=== PATIENT | male | born 1990 | race Caucasian/White ===

== ENCOUNTER 2018-09-09 20:01 | Emergency (ER) | payer MEDICARE, OTHER ==
[~2018-09-09] VITALS: Ht 180.3 cm; Wt 65.1 kg
[~2018-09-09 20:01] MED LIST: CLIN300C2 PO; ELVI1TAB3 PO; HYDR-3601 PO; LEVO500T48 PO; MENT7.6L MM
[2018-09-09 20:05] VITALS: Ht 180.3 cm; Wt 65.1 kg
--- NOTE | 2018-09-10 00:28 | PSY ---
Date/Time of Note Date/Time of Note DATE: 09/10/18 TIME: 00:21 Psychiatric Subjective Eval Consent Pt consented to telemedicine: Yes Subjective Evaluation Patient location: emergency Chief Complaint: PT reports last drug use 2-3 days, drug of choice meth Medical history Problems Medical Problems: (1) Accidental overdose Status: Acute (2) Amphetamine abuse Status: Acute (3) Drug abuse Status: Acute (4) HIV positive Status: Chronic (5) Penile abscess Status: Acute (6) Subcutaneous abscess Status: Acute Allergies: Coded Allergies: Penicillins (Verified Allergy, Unknown, anaphylactic shock, 03/08/15) amoxicillin (Verified Allergy, Unknown, hives, 03/08/15) cefaclor (Verified Allergy, Unknown, hives, 03/08/15) clavulanic acid (Verified Allergy, Unknown, hives, 03/08/15) Psychiatric Objective Eval Mental Status Examination: Laboratory Results Laboratory Tests Test 09/09/18 23:00 09/09/18 23:22 Urine Color YELLOW Urine Clarity CLEAR Urine pH 5.0 Urine Specific [place] 1.026 Urine Ketones NEGATIVE mg/dL Urine Nitrite NEGATIVE mg/dL Urine Bilirubin NEGATIVE mg/dL Urine Urobilinogen NEGATIVE mg/dL Urine Leukocyte Esterase NEGATIVE Jakob/ul Urine Hemoglobin NEGATIVE mg/dL Urine Glucose NEGATIVE mg/dL Urine Total Protein NEGATIVE mg/dl Urine Opiates Screen Negative Urine Barbiturates Negative Urine Amphetamines Screen POSITIVE Urine Benzodiazepines Screen Negative Urine Cocaine Screen Negative Urine Cannabinoids Positive White Blood Count 10.1 10^3/ul Red Blood Count 5.18 10^6/ul Hemoglobin 15.5 g/dl Hematocrit 45.2 % Mean Corpuscular Volume 87.3 fl Mean Corpuscular Hemoglobin 29.9 pg Mean Corpuscular Hemoglobin Concent 34.3 g/dl Red Cell Distribution Width 13.2 % Platelet Count 248 10^3/UL Mean Platelet Volume 9.7 fl Immature Granulocytes % 0.200 % Neutrophils % 66.8 % Lymphocytes % 18.5 % Monocytes % 12.4 % Eosinophils % 1.5 % Basophils % 0.6 % Nucleated Red Blood Cells % 0.0 /100WBC Immature Granulocytes # 0.020 10^3/ul Neutrophils # 6.7 10^3/ul Lymphocytes # 1.9 10^3/ul Monocytes # 1.3 10^3/ul Eosinophils # 0.2 10^3/ul Basophils # 0.1 10^3/ul Nucleated Red Blood Cells # 0.0 10^3/ul Sodium Level 141 mmol/L Potassium Level 4.4 mmol/L Chloride Level 107 mmol/L Carbon Dioxide Level 23 mmol/L Anion Gap 11 Blood Urea Nitrogen 12 mg/dl Creatinine 1.08 mg/dl Est Glomerular Filtrat Rate mL/min > 60 mL/min Glucose Level 101 mg/dl Calcium Level 9.0 mg/dl Total Bilirubin 0.4 mg/dl Direct Bilirubin 0.00 mg/dl Indirect Bilirubin 0.4 mg/dl Aspartate Amino Transf (AST/SGOT) 20 IU/L Alanine Aminotransferase (ALT/SGPT) 26 IU/L Alkaline Phosphatase 87 IU/L Total Protein 7.7 g/dl Albumin 4.3 g/dl Globulin 3.40 g/dl Albumin/Globulin Ratio 1.26 Ethyl Alcohol Level < 10.0 mg/dl Assessment and Plan Recommendation/Plan Discharge Disposition: Psychiatric inpatient Legal Status: Voluntary Assessment Additional comments: IDENTIFYING INFORMATION: 28 year old Male patient who is currently located at the hospital and for whom psychiatric consultation was requested. SOURCES OF INFORMATION: The patient who appears to be somewhat reliable and the medical records; the nursing staff. CHIEF COMPLAINT: "withdrawing from meth". HISTORY OF PRESENT ILLNESS: The patient was interviewed via telemedicine in the presence of and under the supervision of nursing staff of the hospital. The consent to conducting this interview via telemedicine was obtained by the nursing staff at the hospital. WELLINGTON Rivera reports that the patient presented with SI, meth withdrawal. The patient reports having SI yesterday of committing suicide by shooting himself by gun, admits to sleeping too much, feeling depressed. The patient denies having AH, VH, delusions, anhedonia, The patient denies using alcohol heavily or regularly. The patient reports using meth daily. Last use was 3 days ago. The patient denies using any other substances. In terms of past psychiatric history, the patient reports having a history of past psychiatric hospitalizations. The patient reports having a history of past suicide attempts. PAST MEDICAL HISTORY: HIV. CURRENT MEDICATIONS: bictavy. ALLERGIES TO MEDICATIONS: PCN, ceclor, augmentin, seroquel. LABORATORY TESTS: CBC unremarkable, CMP unremarkable, UDS positive for amphetamines, alcohol level not detected. SOCIAL HISTORY: homeless, single, no children; not employed. REVIEW OF SYSTEMS: Constitutional (e.g., fever, weight loss): negative; Eyes, Ears, Nose, Mouth, Throat: negative; Cardiovascular: negative; Respiratory: negative; Gastrointestinal: negative; Genitourinary: negative; Musculoskeletal: negative; Integumentary (skin and/or breast): negative; Neurological: negative; Psychiatric: as per HPI; Endocrine: negative; Hematologic/Lymphatic: negative; Allergic/Immunologic: negative. MENTAL STATUS EXAMINATION: General Appearance and Behavior:anxious, partially cooperative with the interview, somnolent, distant with the current interviewer, makes poor eye contact, fairly groomed, no abnormal movements noted, Speech: Regular rate, regular rhythm, normal latency, normal volume, somewhat decreased amount, Flow of thought: sequential, logical, goal-directed, Content of thought: no auditory hallucinations, no visual hallucinations, no delusions, positive for suicidal ideation; no homicidal ideation, Mood: "depressed", Affect: dysthymic, dysphoric, not reactive, Attention: normal based on the interview, Insight: fair, Judgment: poor, Memory: normal based on the interview, Sensorium: alert and oriented to person, place and date. ASSESSMENT: The patient's presentation and history are consistent with the diagnosis of unspecified mood disorder, stimulant use disorder. The patient presents in a major depressive episode in the context of medication noncompliance, psychosocial stressors and substance use. No evidence of psychosis, anca, hypomania on exam. PLAN: - Medication management: the patient refused to take any psychiatric medications at this time. Would start haloperidol 5 mg IM PRN severe agitation q4 hours. Would start diphenhydramine 50 mg IM PRN severe agitation q4 hours. Would start lorazepam 2 mg IM PRN severe agitation q4 hours Will defer to the inpatient psychiatry team for other medication changes. - Labs: No other laboratory tests are needed at this time. - Psychotherapy: Provided supportive psychotherapy and psychoeducation. - Disposition: Would recommend voluntary admission to the inpatient psychiatric unit as the patient would benefit from such an intervention so long as the patient has been cleared medically for admission to psychiatry. The patient is agreeable to being hospitalized in the inpatient psychiatric unit at this time. Would place on bharathi cide precautions. Discussed about the above plan with Dr. Grissom. HENRY HUGHES MD Sep 10, 2018 00:28
[2018-09-10] MEDS ORDERED: ONDANSETRON (ODT) 4 MG TAB ODT ONE (00:36)
--- NOTE | 2018-09-10 02:11 | ERD ---
ER Documentation Chief Complaint Chief Complaint PT reports last drug use 2-3 days, drug of choice meth HPI 28-year-old male brought in by his parents. Patient reports that he has been using methamphetamines but has been off of drugs for the past 2 to 3 days. He is not feeling well. Otherwise he is very sleepy and unable to answer most questions. He states that he just wants to "end it" but denies any suicidal thoughts or plan. However his parents state that he has been making comments about ending his life. Today he told his parents that he was defecating in public. His parents state that he does have a history of bipolar disorder and has been off of medications and doing drugs. They do not live near him but came from [place] of state to address his problems. Patient denies any significant complaints at this time, however he states that he is withdrawing from drugs. ROS Review of systems are limited as the patient is very sleepy on exam. Medications Home Meds Active Scripts Clindamycin Hcl* (Cleocin*) 300 Mg Cap, 300 MG PO Q8, #30 CAP Prov:WILBERTOCHAN 12/08/17 Hydrocodone Bit-Acetaminophen (Hydrocodone Bit-APAP) 5-325MG Tablet, 1 TAB PO Q6H PRN for PAIN LEVEL 1-5, #14 TAB Prov:WILBERTO,CHAN Curry 12/08/17 Levofloxacin* (Levaquin*) 500 Mg Tablet, 500 MG PO DAILY@06 for 10 Days, #10 TAB Prov:NATALIE LADDTIM Curry 12/08/17 Reported Medications Menthol (HALLS) 7.6 Mg Lozenge, 7.6 MG MM DAILY, LOZENGE 12/04/17 Elviteg/Casandra/Emtric/Tenofo Ala (Genvoya Tablet) 1 Each Tablet, 1 EACH PO DAILY, TAB 12/04/17 Allergies Allergies: Coded Allergies: Penicillins (Verified Allergy, Unknown, anaphylactic shock, 03/08/15) amoxicillin (Verified Allergy, Unknown, hives, 03/08/15) cefaclor (Verified Allergy, Unknown, hives, 03/08/15) clavulanic acid (Verified Allergy, Unknown, hives, 03/08/15) PMhx/Soc History of Surgery: Yes (BRAIN SURGERY 2014, LEG SURGERY 2015) Anesthesia Reaction: No Hx Neurological Disorder: No Hx Respiratory Disorders: No Hx Cardiac Disorders: No Hx Psychiatric Problems: Yes (Bipolar disorder, drug abuse) Hx Miscellaneous Medical Probl: Yes (HX HIV, ASPERGER'S SYNDROME) Hx Alcohol Use: Yes Hx Substance Use: Yes (METHAMPHETAMINE 2 DAYS AGO) Hx Tobacco Use: Yes Smoking Status: Current every day smoker FmHx Unable to obtain Physical Exam Vitals Vital Signs Date Temp Pulse Resp B/P (MAP) Pulse Ox O2 O2 Flow FiO2 Time Delivery Rate 09/09/18 98.2 82 16 138/81 100 Room Air 20:49 (100) 09/09/18 98.2 74 16 141/83 100 20:05 (102) Physical Exam Const: Disheveled, somnolent but arousable Head: Atraumatic Eyes: Normal Conjunctiva, PERRLA, EOMI ENT: Dry mucous membranes. Normal External Ears, Nose and Mouth. Neck: Full range of motion. No meningismus. Resp: Clear to auscultation bilaterally Cardio: Regular rate and rhythm, no murmurs Abd: Soft, non tender, non distended. Normal bowel sounds Skin: No petechiae or rashes Back: No midline or flank tenderness Ext: No cyanosis, or edema Neur: Somnolent but arousable, slurred speech, following commands, moving all extremities spontaneously. Observed patient walking with a steady gait. Psych: Flat affect, appears depressed, denies any SI or HI. Denies hallucinations Result Diagram: 09/09/18 2322 09/09/18 2322 Results 24 hrs Laboratory Tests Test 09/09/18 23:00 09/09/18 23:22 Urine Color YELLOW Urine Clarity CLEAR Urine pH 5.0 Urine Specific [place] 1.026 Urine Ketones NEGATIVE mg/dL Urine Nitrite NEGATIVE mg/dL Urine Bilirubin NEGATIVE mg/dL Urine Urobilinogen NEGATIVE mg/dL Urine Leukocyte Esterase NEGATIVE Jakob/ul Urine Hemoglobin NEGATIVE mg/dL Urine Glucose NEGATIVE mg/dL Urine Total Protein NEGATIVE mg/dl Urine Opiates Screen Negative Urine Barbiturates Negative Urine Amphetamines Screen POSITIVE Urine Benzodiazepines Screen Negative Urine Cocaine Screen Negative Urine Cannabinoids Positive White Blood Count 10.1 10^3/ul Red Blood Count 5.18 10^6/ul Hemoglobin 15.5 g/dl Hematocrit 45.2 % Mean Corpuscular Volume 87.3 fl Mean Corpuscular Hemoglobin 29.9 pg Mean Corpuscular Hemoglobin Concent 34.3 g/dl Red Cell Distribution Width 13.2 % Platelet Count 248 10^3/UL Mean Platelet Volume 9.7 fl Immature Granulocytes % 0.200 % Neutrophils % 66.8 % Lymphocytes % 18.5 % Monocytes % 12.4 % Eosinophils % 1.5 % Basophils % 0.6 % Nucleated Red Blood Cells % 0.0 /100WBC Immature Granulocytes # 0.020 10^3/ul Neutrophils # 6.7 10^3/ul Lymphocytes # 1.9 10^3/ul Monocytes # 1.3 10^3/ul Eosinophils # 0.2 10^3/ul Basophils # 0.1 10^3/ul Nucleated Red Blood Cells # 0.0 10^3/ul Sodium Level 141 mmol/L Potassium Level 4.4 mmol/L Chloride Level 107 mmol/L Carbon Dioxide Level 23 mmol/L Anion Gap 11 Blood Urea Nitrogen 12 mg/dl Creatinine 1.08 mg/dl Est Glomerular Filtrat Rate mL/min > 60 mL/min Glucose Level 101 mg/dl Calcium Level 9.0 mg/dl Total Bilirubin 0.4 mg/dl Direct Bilirubin 0.00 mg/dl Indirect Bilirubin 0.4 mg/dl Aspartate Amino Transf (AST/SGOT) 20 IU/L Alanine Aminotransferase (ALT/SGPT) 26 IU/L Alkaline Phosphatase 87 IU/L Total Protein 7.7 g/dl Albumin 4.3 g/dl Globulin 3.40 g/dl Albumin/Globulin Ratio 1.26 Ethyl Alcohol Level < 10.0 mg/dl Current Medications Medications Dose Sig/Bassem Start Time Status Last (Trade) Ordered Route PRN Stop Time Admin Dose Reason Admin Ondansetron 4 mg ONCE ONCE 09/10/18 DC 09/10/18 HCl (Zofran ODT 00:36 09/10/18 00:40 Odt) 00:37 Procedures/MDM EMERGENT LABS AND DIAGNOSTIC STUDIES: Lab Results above were reviewed and interpreted by me. CBC: no anemia or evidence of infection CMP: No evidence of clinically significant electrolyte abnormality, acidosis, renal failure, hypoglycemia, liver disease, or biliary obstruction Urine drug screen positive for amphetamines and cannabinoids EtOH level normal, no evidence of intoxication UA: no evidence of infection Initial Nursing notes reviewed. Previous Medical Records requested via the Electronic Health Record. EMERGENCY DEPARTMENT COURSE / MEDICAL DECISION MAKING: Patient was brought in for drug abuse and suicidal statements made to parents. He is hemodynamically stable. There are no signs of an acute medical condition on work-up. Patient was medically cleared and evaluated by tele-psychiatry. This was done in the presence of parents at bedside. The tele-psychiatrist evaluate the patient and feels that the patient does not require an involuntary hold at this time. There were no medication recommendations. He did state that he would recommend voluntary psychiatric hospitalization as the patient is willing to get treatment. Parents are happy about this plan. Patient's care signed out to the oncoming ED physician pending transfer to psychiatric facility on a voluntary basis. Patient medically cleared from my standpoint for psychiatric treatment and hospitalization. Departure Diagnosis: Primary Impression: Drug abuse Additional Impression: Bizarre behavior Condition: Serious TANYA CHOWDARY MD Sep 10, 2018 02:11
--- NOTE | 2018-09-10 13:19 | EN ---
Date/Time of Note Date/Time of Note DATE: 09/10/18 TIME: 13:18 ER Progress Note Psychiatric Observation Note: Indication: Suicidal ideation Duration: Greater than 12 hours Family history: As documented in original HPI The patient was observed with serial exams over the above timeframe. The patient continued to be well-appearing, and observation continued without complication. All other needs have been met during emergency department stay. Hold status: [Telemetry medicine psychiatry has recommended voluntary hold Placement status: Patient states that he is no longer suicidal, repeat telemetry medicine psychiatry evaluation pending. ANAHI FUNK MD Sep 10, 2018 13:19
--- NOTE | 2018-09-10 13:55 | PSY ---
Date/Time of Note Date/Time of Note DATE: 09/10/18 TIME: 13:48 Psychiatric Subjective Eval Consent Pt consented to telemedicine: Yes Subjective Evaluation Patient location: emergency Chief Complaint: PT reports last drug use 2-3 days, drug of choice meth History of present illness 28 yo homeless male with hx meth use presents to ED initially c/o vague SI; however, he denies any SI today: "I may've said it but I didn't mean it" He says he needs a referral to a drug treatment program. He reprots feeling somewhat depressed but denies any SI or HI, denies VH; + AH ("sometimes", non command). No agitation. Past psychiatric history prior inpt hx SA Hospitalization: Suicidal Attempt(s) Family History denies Medical history Problems Medical Problems: (1) Accidental overdose Status: Acute (2) Amphetamine abuse Status: Acute (3) Bizarre behavior Status: Acute (4) Drug abuse Status: Acute (5) HIV positive Status: Chronic (6) Penile abscess Status: Acute (7) Subcutaneous abscess Status: Acute Allergies: Coded Allergies: Penicillins (Verified Allergy, Unknown, anaphylactic shock, 03/08/15) amoxicillin (Verified Allergy, Unknown, hives, 03/08/15) cefaclor (Verified Allergy, Unknown, hives, 03/08/15) clavulanic acid (Verified Allergy, Unknown, hives, 03/08/15) Substance Abuse Substance abuse history: Yes Prior substance abuse treatmen: Yes Social History Marital status: single DPA/Conservatorship: No Occupation/Longterm: homeless Psychiatric Objective Eval Review of Systems: Review of Systems: Not Applicable Mental Status Examination: Appearance: Poor Hygiene Eye Contact: Good Psychomotor Activity: Normal Behavior: Cooperative Speech: Clear AFFECT: Appropriate Mood: Appropriate/Full Though Process: Linear Thought Content: Hallucinations Suicidal: No Homicidal: No On 72 hour hold: No Orientation: x4 Cognition: Alert Insight: Impared Judgement: Intact Laboratory Results Laboratory Tests Test 09/09/18 23:00 09/09/18 23:22 Urine Color YELLOW Urine Clarity CLEAR Urine pH 5.0 Urine Specific [place] 1.026 Urine Ketones NEGATIVE mg/dL Urine Nitrite NEGATIVE mg/dL Urine Bilirubin NEGATIVE mg/dL Urine Urobilinogen NEGATIVE mg/dL Urine Leukocyte Esterase NEGATIVE Jakob/ul Urine Hemoglobin NEGATIVE mg/dL Urine Glucose NEGATIVE mg/dL Urine Total Protein NEGATIVE mg/dl Urine Opiates Screen Negative Urine Barbiturates Negative Urine Amphetamines Screen POSITIVE Urine Benzodiazepines Screen Negative Urine Cocaine Screen Negative Urine Cannabinoids Positive White Blood Count 10.1 10^3/ul Red Blood Count 5.18 10^6/ul Hemoglobin 15.5 g/dl Hematocrit 45.2 % Mean Corpuscular Volume 87.3 fl Mean Corpuscular Hemoglobin 29.9 pg Mean Corpuscular Hemoglobin Concent 34.3 g/dl Red Cell Distribution Width 13.2 % Platelet Count 248 10^3/UL Mean Platelet Volume 9.7 fl Immature Granulocytes % 0.200 % Neutrophils % 66.8 % Lymphocytes % 18.5 % Monocytes % 12.4 % Eosinophils % 1.5 % Basophils % 0.6 % Nucleated Red Blood Cells % 0.0 /100WBC Immature Granulocytes # 0.020 10^3/ul Neutrophils # 6.7 10^3/ul Lymphocytes # 1.9 10^3/ul Monocytes # 1.3 10^3/ul Eosinophils # 0.2 10^3/ul Basophils # 0.1 10^3/ul Nucleated Red Blood Cells # 0.0 10^3/ul Sodium Level 141 mmol/L Potassium Level 4.4 mmol/L Chloride Level 107 mmol/L Carbon Dioxide Level 23 mmol/L Anion Gap 11 Blood Urea Nitrogen 12 mg/dl Creatinine 1.08 mg/dl Est Glomerular Filtrat Rate mL/min > 60 mL/min Glucose Level 101 mg/dl Calcium Level 9.0 mg/dl Total Bilirubin 0.4 mg/dl Direct Bilirubin 0.00 mg/dl Indirect Bilirubin 0.4 mg/dl Aspartate Amino Transf (AST/SGOT) 20 IU/L Alanine Aminotransferase (ALT/SGPT) 26 IU/L Alkaline Phosphatase 87 IU/L Total Protein 7.7 g/dl Albumin 4.3 g/dl Globulin 3.40 g/dl Albumin/Globulin Ratio 1.26 Ethyl Alcohol Level < 10.0 mg/dl Assessment and Plan Assessment/Diagnosis Diagnosis AMPHETAMINE USE DISORDER WITH PSYCHOSIS Recommendation/Plan Medication Management ABILIFY 5 MG POQD Discharge Disposition: Community (Intermediate) Legal Status: Release involuntary hold Other PLEASE REFER TO [facility] RAI LAURENT MD Sep 10, 2018 13:55
--- NOTE | 2018-09-10 15:31 | EN ---
Date/Time of Note Date/Time of Note DATE: 09/10/18 TIME: 15:29 ER Progress Note Sign Out Note: Dr. Rodriguez relayed current data and ongoing care with me. Time: Time of this note Main Issue: Suicide Ideations, drug abuse Pending: Telepsych re-evaluation Patient was reevaluated by the tele-psychiatrist and no longer meets criteria for psychiatric hold or hospitalization. They recommended providing the patient with outpatient detox program resources. This was provided to the patient. From my standpoint he is medically cleared for discharge. I had the social wor ker speak to the parents regarding discharge plan. She explained to them that he does not have any medical reason for being admitted and that he has the capacity to make his own medical decisions. We cannot force him to go to detox facility or seek outpatient care, only provide him with resources. TANYA CHOWDARY MD Sep 10, 2018 15:31
[2018-09-10 16:16] VITALS: BP 131/78; PULSE 78; RESP 17
== END 2018-09-10 16:39 | disposition home or self-care (01) ==
LOC: E/R 20:01
DX: F15.10 Other stimulant abuse, uncomplicated (principal); F17.210 Nicotine dependence, cigarettes, uncomplicated; Z21 Asymptomatic human immunodeficiency virus [HIV] infection status
CPT/HCPCS: 36415; 80053; 80307; 81003; 85025; 99283

== ENCOUNTER 2018-09-15 01:32 | Emergency (ER) | payer MEDICARE, OTHER ==
[~2018-09-15] VITALS: Ht 170.2 cm; Wt 63.4 kg
[2018-09-15 01:34] VITALS: Ht 170.2 cm; Wt 63.4 kg
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
--- NOTE | 2018-09-15 03:23 | ERD ---
ER Documentation Chief Complaint Chief Complaint LAC TO R UPPER ARM; PT STATES HE WAS BIT BY A DOG HPI Patient is a 28 years old male with past medical history of psychiatric illness presenting to the clinic for dog bite wound next few hours ago. Patient reports that his neighbor released his [place] pitbull onto him in front of his tent. Patient reports pitbull bit his right thigh and right arm. She admits to moderate pain denies taking any OTC medication. Patient admits to tetanus vaccination 3 years ago and admits to penicillin allergy. ROS All systems reviewed and are negative except as per history of present illness. Medications Home Meds Active Scripts Clindamycin Hcl* (Clindamycin Hcl*) 300 Mg Capsule, 300 MG PO TID for 10 Days, CAP Prov:MARIA DEL CARMEN HARDIN PA-C 09/15/18 Doxycycline Hyclate* (Doxycycline Hyclate*) 100 Mg Tablet.dr, 100 MG PO BID for 10 Days, TAB Prov:MARIA DEL CARMEN HARDIN PA-C 09/15/18 Ibuprofen* (Motrin*) 800 Mg Tab, 800 MG PO Q6H PRN for PAIN AND OR ELEVATED T EMP, #30 TAB Prov:MARIA DEL CARMEN HARDIN PA-C 09/15/18 Discontinued Reported Medications Menthol (HALLS) 7.6 Mg Lozenge, 7.6 MG MM DAILY, LOZENGE 12/04/17 Elviteg/Casandra/Emtric/Tenofo Ala (Genvoya Tablet) 1 Each Tablet, 1 EACH PO DAILY, TAB 12/04/17 Discontinued Scripts Clindamycin Hcl* (Cleocin*) 300 Mg Cap, 300 MG PO Q8, #30 CAP Prov:CHAN LADD 12/08/17 Hydrocodone Bit-Acetaminophen (Hydrocodone Bit-APAP) 5-325MG Tablet, 1 TAB PO Q6H PRN for PAIN LEVEL 1-5, #14 TAB Prov:CHAN LADD 12/08/17 Levofloxacin* (Levaquin*) 500 Mg Tablet, 500 MG PO DAILY@06 for 10 Days, #10 TAB Prov:CHAN LADD 12/08/17 Allergies Allergies: Coded Allergies: Penicillins (Verified Allergy, Unknown, anaphylactic shock, 03/08/15) amoxicillin (Verified Allergy, Unknown, hives, 03/08/15) cefaclor (Verified Allergy, Unknown, hives, 03/08/15) clavulanic acid (Verified Allergy, Unknown, hives, 03/08/15) PMhx/Soc History of Surgery: Yes (BRAIN SURGERY 2015, LEG SURGERY 2016) Anesthesia Reaction: No Hx Neurological Disorder: No Hx Respiratory Disorders: No Hx Cardiac Disorders: No Hx Psychiatric Problems: Yes (Bipolar disorder, drug abuse) Hx Miscellaneous Medical Probl: Yes (HX HIV, ASPERGER'S SYNDROME) Hx Alcohol Use: Yes Hx Substance Use: Yes (METHAMPHETAMINE 2 DAYS AGO) Hx Tobacco Use: Yes Smoking Status: Current every day smoker FmHx Family History: No diabetes, No coronary disease, No other Physical Exam Vitals Vital Signs Date Temp Pulse Resp B/P (MAP) Pulse Ox O2 O2 Flow FiO2 Time Delivery Rate 09/15/18 98.9 89 16 122/74 99 Room Air 04:31 (90) 09/15/18 100.6 93 18 117/74 96 01:34 (88) Physical Exam Const: No acute distress Head: Atraumatic Eyes: Normal Conjunctiva Resp: Clear to auscultation bilaterally Cardio: Regular rate and rhythm, no murmurs Abd: Soft, non tender, non distended. Normal bowel sounds Skin: Skin abrasion on right mid quadricep region and two 1 cm abrasion on right mid humerus. No signs of erythema, induration, pus drainage. Neur: Awake and alert Psych: Normal Mood and Affect Results 24 hrs Current Medications Medications Dose Sig/Bassem Start Time Status Last (Trade) Ordered Route PRN Stop Time Admin Dose Reason Admin Bacitracin 1 applic ONCE ONCE 09/15/18 DC 09/15/18 (Bacitracin TOP 03:30 03:19 Oint (Ud)) 09/15/18 03:31 Ibuprofen 800 mg ONCE ONCE 09/15/18 DC 09/15/18 (Motrin) PO 03:30 03:19 09/15/18 03:31 Procedures/MDM Patient was seen and evaluated for dog bite. Wound cleaning with soap and water was performed followed by dressing application with bacitracin ointment. No suture required for today's visit. Patient is stable and ready for discharge. Follow-up in 5 days for wound care. Patient will be discharged with ibuprofen, doxycycline and clindamycin. Patient was advised to take antibiotic with full glass of water while upright position. Departure Diagnosis: Primary Impression: Dog bite Encounter type: initial encounter Qualified Codes: W54.0XXA - Bitten by dog, initial encounter Condition: Stable Patient Instructions: Dog Bite Referrals: [facility] Additional Instructions: Patient advised to return to the ED immediately for new or worsening symptoms. Patient advised to follow up with primary care provider in the next 24-48 hours. Patient verbalized understanding and agrees with treatment plan and course of action. If patient has no primary care they may follow up with [facility] [address] [place] [id number] or [facility] [address] [place] [address] or [facility] [address] [place] [address] I have reviewed the PA/HOUSE CARPENTER HELPER's note and plan of care. I was available for consultation as needed at all times during the patient's visit in the emergency department. I have signed the chart per hospital administration request. I had no direct contact with the patient, nor did I contribute to MDM or care of the patient. I have reviewed the PA/HOUSE CARPENTER HELPER's note and plan of care. I was available for consultation as needed at all times during the patient's visit in the emergency department. I have signed the chart per hospital administration request. I had no direct contact with the patient, nor did I contribute to MDM or care of the patient. MARIA DEL CARMEN HARDIN PA-C Sep 15, 2018 03:23 RADHA LE MD Sep 17, 2018 22:13
[2018-09-15] MEDS ORDERED: DOXY100T20 PO (03:24)
[2018-09-15] MEDS ORDERED: IBUP800T48 PO (03:24)
[2018-09-15] MEDS ORDERED: CLIN300C10 PO (03:24)
[2018-09-15] MEDS ORDERED: BACITRACIN 0.9 GM OINT TOP ONE (03:30)
[2018-09-15] MEDS ORDERED: IBUPROFEN 800 MG TAB PO ONE (03:30)
[2018-09-15 04:31] VITALS: BP 122/74; PULSE 89; RESP 16
== END 2018-09-15 04:32 | disposition home or self-care (01) ==
LOC: E/R 01:32
DX: S41.151A Open bite of right upper arm, initial encounter (principal); F17.210 Nicotine dependence, cigarettes, uncomplicated; S71.151A Open bite, right thigh, initial encounter; W54.0XXA Bitten by dog, initial encounter; Y92.9 Unspecified place or not applicable; Z21 Asymptomatic human immunodeficiency virus [HIV] infection status
CPT/HCPCS: 99283